=== PATIENT | female | born 1995 | race Caucasian/White ===

== ENCOUNTER 2018-07-04 04:37 | Emergency (ER) | payer OTHER ==
[~2018-07-04] VITALS: Ht 160 cm; Wt 42.3 kg
[2018-07-04 04:53] VITALS: Ht 160 cm; Wt 42.3 kg
[2018-07-04] MEDS ORDERED: ULTRAM50 MG PO (06:12)
[2018-07-04 06:28] VITALS: BP 118/68
== END 2018-07-04 06:29 | disposition home or self-care (01) ==
LOC: D.ER 04:37
DX: S20.211A Contusion of right front wall of thorax, initial encounter (principal); V49.9XXA Car occupant (driver) (passenger) injured in unspecified traffic accident, initial encounter; Y93.89 Activity, other specified; Y92.410 Unspecified street and highway as the place of occurrence of the external cause